=== PATIENT | female | born 1950 ===

== ENCOUNTER → 2019-07-28 | Outpatient (CLI) | payer MEDICARE, OTHER ==
--- NOTE | 2019-07-28 15:36 | KCIC ---
EXAM: Dual energy x-ray absorptiometry (DEXA). HISTORY: Postmenopausal female presents for osteoporosis screening. COMPARISON: None. TECHNIQUE: Dual energy x-ray absorptiometry of the lumbar spine and left hip was performed. Calculation of bone mineral density based on standard deviations above or below the expected young adult normal value (T-score) was completed. FINDINGS: The average bone mineral density in the 1st through 4th lumbar vertebrae is 1.001 g/cmxcm, corresponding with a T-score of -0.4. The average total bone mineral density in the left hip is 0.89 g/cmxcm, corresponding with a T-score of -0.4. IMPRESSION: Normal bone mineral density. Note: Definitions established by the [employer] Organization: 1. Normal: T-score is -1.0 or above. 2. Osteopenia: T-score is between -1.0 and -2.5 . 3. Osteoporosis: T-score is -2.5 or below. Electronically signed by: Charline Gomez MD (07/28/2019 3:32 PM) [place] [id number]
--- NOTE | 2019-07-28 16:46 | KCIC ---
EXAM: Thyroid sonogram. HISTORY: Thyroid nodule. TECHNIQUE: Sonographic imaging of the thyroid was performed. COMPARISON: None. FINDINGS: The right thyroid lobe measures 4.9 x 1.4 x 2.0 cm. The left thyroid lobe measures 4.8 x 1.1 x 2.1 cm. The isthmus measures 3 mm. No solid or cystic thyroid lesion is seen. IMPRESSION: Unremarkable thyroid sonogram. Electronically signed by: Charline Gomez MD (07/28/2019 4:43 PM) [place] [id number]
--- NOTE | 2019-07-31 13:47 | KCIC ---
Bilateral digital screening mammograms: Reason for examination: Routine screening. Comparison is made to previous studies dated 03/25/2017 and 02/07/2016. Interpretation was made with the benefit of CAD. The skin and nipples show no abnormalities. No abnormal axillary lymph nodes are seen. The breast parenchyma shows scattered fibroglandular density. (Breast density: Category B.) There are no dominant masses, suspicious calcifications or architectural distortions. Impression: No evidence of malignancy. Recommend routine screening. BI-RADS Category 1: Negative. "Our facility is accredited by the [employer] Mammography Program." This patient's information has been entered into a reminder system for the patient to be notified with the results of her examination and a target date for the next mammogram. Electronically signed by: Lyndsey Sanders MD (07/31/2019 1:44 PM) [id number]
== END | disposition home or self-care (01) ==
LOC: KCIC US 13:49
PROVIDERS: ATTEND Internal Medicine
DX: Z13.820 Encounter for screening for osteoporosis (principal); Z12.31 Encounter for screening mammogram for malignant neoplasm of breast; N64.89 Other specified disorders of breast; M81.0 Age-related osteoporosis without current pathological fracture; E04.1 Nontoxic single thyroid nodule
CPT/HCPCS: 76536; 77067; 77080